=== PATIENT | male | born 1990 | race Caucasian/White ===

== ENCOUNTER 2019-07-21 05:01 | Emergency (ER) | payer BC, OTHER ==
--- NOTE | 2019-07-21 05:18 | EDM.PDOC ---
ED HPI GENERAL MEDICAL PROBLEM - General Chief Complaint: CPR in Progress Stated Complaint: [facility] Time Seen by Provider: 07/21/19 05:01 - History of Present Illness INITIAL COMMENTS - FREE TEXT/NARRATIVE: 29-year-old male brought in with CPR in progress. EMS has been working on this unfortunate male for at least 35 minutes prior to arrival deputy juvenile officer arrived several minutes prior to EMS arriving and the time from the initial call to arrival the electric motor repairing supervisor's deputy was approximately 6 minutes. The patient was found in an apparent self hanging. The patient used a small dog leash and the nylon strap and part of the chain was around his neck this was looped over 1 of the stairs into the basement. The last saw the patient approximately 30 minutes before finding him in the basement in this position. It took the electric motor repairing supervisor's deputy roughly 3 minutes to cut him down and then CPR was started. Nothing else is known about what led to this event or any other precipitating factors. - Related Data Allergies Allergy/AdvReac Type Severity Reaction Status Date / Time Penicillins Allergy Itching Verified 02/09/14 06:35 ED ROS GENERAL - Review of Systems Review Of Systems: See Below Reason Not Obtained: Able to obtain ED EXAM, CPR - Physical Exam Exam: See Below Limited By: Unresponsive General Appearance: Other (Mottled grayish skin color to the face. Esequiel airway in place) Eye Exam: Bilateral Eye: Other (Pupils fixed and dilated) Throat/Mouth: Other (Esequiel air in place) Neck: Other (Deep indentation from the hanging device with) Respiratory Chest: Other (Bag respirations per respiratory therapist) Cardiovascular: CPR In Progress, Other (No palpable pulse at any time) GI/Abdominal Exam: Other (No active bowel sounds soft) Extremities: Mottled Course - Re-Assessments/Exams Free Text/Narrative Re-Assessment/Exam: 07/21/19 06:22 The patient at least had a 44-minute downtime I suspect it was much longer than this. Upon arrival to the emergency department pupils are fixed and dilated we did 1 cycle of epinephrine in the process of assessing the overall situation and it was determined that there was no reasonable chance of recovery and the code was stopped at 0506. 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
[2019-07-21] MEDS ORDERED: EPINEPHrine 1:10,000 1 MG/10 ML Syringe ONE (23:00)
== END 2019-07-21 06:58 | disposition expired ==
LOC: JD.ED 05:01
DX: T71.161A Asphyxiation due to hanging, accidental, initial encounter (principal); Z88.0 Allergy status to penicillin; X83.8XXA Intentional self-harm by other specified means, initial encounter
CPT/HCPCS: 92950; 99285; J0171; 99283